=== PATIENT | female | born 1945 | race Caucasian/White ===

== ENCOUNTER 2018-07-07 11:01 | Emergency (ER) | payer MEDICARE, MEDICAID ==
[2018-07-07 11:35] VITALS: BP 126/72; PULSE 70; RESP 16; TEMP 98.4; O2SAT 97
[2018-07-07 11:36] VITALS: BMI 28.9
--- NOTE | 2018-07-07 12:49 | ED PDOC ---
HPI: Skin/Bite Injury Time Seen by Provider: 07/07/18 12:12 Chief Complaint (Nursing): Abnormal Skin Integrity Chief Complaint (Provider): Rash History Per: Other (neighbor) History/Exam Limitations: other (due to patient's dementia, all history obtained from neighbor present) Onset/Duration Of Symptoms: Days (x2-3) Current Symptoms Are (Timing): Still Present Additional Complaint(s): 72 year old female presents to the ED with neighbor for evaluation of an itchy, non-painful rash for the past 2-3 days. All history obtained from neighbor secondary to patient's dementia. Otherwise, denies taking any medications, new exposures, fever, shortness of breath, facial swelling, nausea, and vomiting. PMD: [place] Past Medical History Reviewed: Historical Data, Nursing Documentation, Vital Signs Vital Signs: Last Vital Signs Temp 98.4 F 07/07/18 11:34 Pulse 70 07/07/18 11:34 Resp 16 07/07/18 11:34 BP 126/72 07/07/18 11:34 Pulse Ox 97 07/07/18 11:34 - Medical History PMH: Anemia, Dementia (as per neighbor), Diabetes, HTN, Hypercholesterolemia Other PMH: GI bleed - Surgical History Surgical History: No Surg Hx - Family History Family History: States: Unknown Family Hx - Home Medications Home Medications: Ambulatory Orders Medication Instructions Recorded Alendronate Sodium 35 mg PO QWK 12/13/14 Allopurinol 100 mg PO DAILY 12/13/14 Aspirin [Aspirin Chewable] 81 mg PO DAILY 12/13/14 Fenofibric Acid (Choline) 45 mg PO DAILY 12/13/14 [Trilipix] Glimepiride [Amaryl] 4 mg PO DAILY 12/13/14 Olmesartan Medoxomil [Benicar] 40 mg PO DAILY 12/13/14 Omeprazole [Prilosec] 20 mg PO DAILY 12/13/14 Ranolazine [Ranexa] 500 mg PO DAILY 12/13/14 Sevelamer Carbonate [Renvela] 800 mg PO DAILY 12/13/14 Hydrocortisone 1% Cream [Cortizone 1 appl TP BID PRN #1 tube 07/07/18 1% Cream] hydrOXYzine HCl [Atarax] 25 mg PO Q8 PRN #15 tab 07/07/18 - Allergies Allergies/Adverse Reactions: Allergies Allergy/AdvReac Type Severity Reaction Status Date / Time No Known Allergies Allergy Verified 07/07/18 12:22 Review of Systems ROS Statement: Except As Marked, All Systems Reviewed And Found Negative Constitutional: Negative for: Fever ENT: Negative for: Other (facial swelling) Respiratory: Negative for: Cough, Shortness of Breath Gastrointestinal: Negative for: Nausea, Vomiting Skin: Positive for: Rash (itchy, non-painful rash to face, neck, arms) Physical Exam - Reviewed Nursing Documentation Reviewed: Yes Vital Signs Reviewed: Yes - Physical Exam Comments: GENERAL APPEARANCE: Patient is awake, alert, in no acute distress. SKIN: scattered, erythematous raised macules/insect bites to the neck, bilateral upper extremities, and right facial cheek. Otherwise (-) excoriations, (-) drainage, (-) crusting, (-) surrounding cellulitis. HENT: (-) conjunctival injection, (-) chemosis. Oropharynx: clear (-) tongue or lip swelling, (-) tonsillar exudates, (-) erythema. Airway: patent (-) stridor, (-) hoarseness. Mucous membranes moist. Nares: Patent. NECK: Supple, FROM, (-) tenderness. CARDIOVASCULAR: RRR, (-) irregularity CHEST: (-) rales, (-) wheezing (-) rhonchi. Breath sounds equal bilaterally. Respirations non-labored. ABDOMEN: Soft. (-) tenderness (-) distention (-) guarding. NEURO: Mental status as above. Gait: steady. (-) facial asymmetry - ECG O2 Sat by Pulse Oximetry: 97 (RA) Pulse Ox Interpretation: Normal Medical Decision Making Medical Decision Making: Initial Impression: rash, probable insect bites Time: 1235 Initial Plan: --Dr. Rea agreeable to come evaluate patient at bedside. 1305 Patient seen at bedside by ED MD Rea, advises discharge with antihistamines and cortisone cream. Diagnostic results d/w the patient/neighbor in great detail. Diagnosis of rash, probable insect bites d/w the patient/neighbor. Based on history, exam and diagnostic results, plan will be for outpatient follow up with PMD. Patient/neighbor instructed to follow-up with pmd / referral provided / the clinic in 1-2 days without fail. Advised to take medication as prescribed. Return to the emergency room at any time for any new or worsening symptoms. Patient/neighbor states she fully agrees with and understands discharge instructions. States that she agrees with the plan and disposition. Verbalized and repeated discharge instructions and plan. I have given the patient opportunity to ask any additional questions. Scribe Attestation: Documented by Francoise Chapman, acting as a scribe for Noemy Valencia PA-C. Provider Scribe Attestation: All medical record entries made by the Scribe were at my direction and personally dictated by me. I have reviewed the chart and agree that the record accurately reflects my personal performance of the history, physical exam, medical decision making, and the department course for this patient. I have also personally directed, reviewed, and agree with the discharge instructions and disposition. Disposition - Clinical Impression Clinical Impression: Rash, Insect bites - Patient ED Disposition Is Patient to be Admitted: No Counseled Patient/Family Regarding: Studies Performed, Diagnosis, Need For Followup, Rx Given - Disposition Referrals: Zandra Guerra APN [Advanced Practice Nurse] - Disposition: Routine/Home Disposition Time: 13:05 Condition: STABLE Additional Instructions: The emergency medical care you received today was directed at your acute symptoms. If you were prescribed any medication, please fill it and take as directed. It may take several days for your symptoms to resolve. Return to the Emergency Department if your symptoms worsen, do not improve, or if you have any other problems. Please contact your doctor in 2 days for re-evaluation and follow up / or call one of the physicians/clinics you have been referred to that are listed on the Patient Visit Information form that is included in your discharge packet. Bring any paperwork you were given at discharge with you along with any medications you are taking to your follow up visit. Our treatment cannot replace ongoing medical care by a primary care provider (PCP) outside of the emergency department. Prescriptions: Hydrocortisone 1% Cream [Cortizone 1% Cream] 1 appl TP BID PRN #1 tube PRN Reason: Rash hydrOXYzine HCl [Atarax] 25 mg PO Q8 PRN #15 tab PRN Reason: Itching / Pruritus Instructions: Insect Bites and Stings, Skin Rash, Topical Corticosteroid Medicines Forms: [employer] (Croatian) Print Language: CHINESE - POA Present On Arrival: None
== END 2018-07-07 13:18 | disposition home or self-care (01) ==
LOC: H.ER 11:01
DX: R21 Rash and other nonspecific skin eruption (principal); S00.86XA Insect bite (nonvenomous) of other part of head, initial encounter; E11.9 Type 2 diabetes mellitus without complications; I10 Essential (primary) hypertension; Z79.84 Long term (current) use of oral hypoglycemic drugs; F03.90 Unspecified dementia, unspecified severity, without behavioral disturbance, psychotic disturbance, mood disturbance, and anxiety; W57.XXXA Bitten or stung by nonvenomous insect and other nonvenomous arthropods, initial encounter